=== PATIENT | female | born 1950 | race Two or more races ===

== ENCOUNTER 2023-02-16 06:24 | Day surgery (SDC) | payer OTHER ==
[~2023-02-16 06:24] MED LIST: HEARTBURN RELI200 MG PO; IRBESARTAN75 MG PO; LANTUS; METFORMIN HCL1000 M1 PO; SINGULAIR10 MG PO
[2023-02-16] MEDS ORDERED: TRAM1TAB98 PO (12:07)
[2023-02-16] MEDS ORDERED: MACROBID 100 M100 MG PO (12:07)
== END 2023-02-16 16:00 | disposition home or self-care (01) ==
LOC: CIR.AMB 06:24
PROVIDERS: ATTEND Obstetrics & Gynecology Gynecology
DX: N81.6 Rectocele (principal); N81.5 Vaginal enterocele; Z88.0 Allergy status to penicillin; Z20.822 Contact with and (suspected) exposure to COVID-19; I10 Essential (primary) hypertension